=== PATIENT | female | born 1940 | race Caucasian/White ===

== ENCOUNTER 2024-02-14 11:27 | Emergency (ER) | payer OTHER, SELFPAY ==
[2024-02-14 11:36] VITALS: BP 185/73
[2024-02-14 12:41] LABS: ALT (SGPT) 18 U/L (0-35); AST (SGOT) 31 U/L (14-36); Albumin 4.6 g/dl (3.5-5.0); Alkaline Phosphatase 87 U/L (38-126); Blood Urea Nitrogen 26 mg/dl (7-17); Carbon Dioxide 25 mmol/L (22-30); Chloride 104 mmol/L (98-107); Glucose 132 mg/dl (70-99); Potassium 4.6 mmol/L (3.5-5.1); Sodium 138 mmol/L (135-145); Total Bilirubin 0.7 mg/dl (0.2-1.3); Total Protein 7.4 g/dl (6.3-8.2); eGFR > 60.00
[2024-02-14 12:53] LABS: Troponin I < 0.012 ng/ml
--- NOTE | 2024-02-14 16:56 | ED.GENMED ---
History of Present Illness
General
Chief Complaint: Dizziness
Source: patient
Exam Limitations: none
Time Seen by Provider: 02/14/24 16:26
Nursing documentation reviewed up to this point in time: agreed with
Travel History
Have you had any contact with someone who has COVID-19?: No
Do you have any symptoms of coronavirus? Fever > 100 degrees, chills, cough, shortness of breath, sore throat, loss of taste or smell, muscle aches, or headache?: No
History of Present Illness
History of Present Illness:
Patient is an 83-year-old female who presents to the ER for evaluation. Patient has a history of A-fib hypertension hyperlipidemia TARUN ses-[id number] diabetes and this morning had an episode of dizziness which she describes as
lightheadedness. This was prior to eating her breakfast. She denies any vertigo/room spinning sensation. She feels better now. She has no complaints presently.
She denies any associated chest pain shortness of breath any recent fever chills. She denies any urinary frequency urgency or dysuria
Past History
Past History
ED Past Medical History: Arrthythmia, GERD, Hypercholesterolemia and NIDDM
Social History
Tobacco: Non-smoker
Living: with family
Employment: Retired
Family History
Family History: Other (Noncontributory)
Review of Systems
Review of Systems
Allergies reviewed?: Yes
Other source history: family
Constitutional: Reports no symptoms; Denies fever, fatigue or chills
EENT: Reports no symptoms
Respiratory: Reports no symptoms
Cardiac: Reports no symptoms
ABD/GI: Reports no symptoms
Musculoskeletal: Reports no symptoms
Skin: Reports no symptoms
Neurological: Reports dizzy
Hematologic/Lymphatic: Reports no symptoms
Psychiatric: Reports no symptoms
Phy Exam
General Physical Exam
General Presentation: no apparent distress
General age: appears stated age
General Skin: warm and dry
General Habitus: normal
General Mental: alert
General Hydration: dry mucous membranes
Cardiovascular Exam
Cardiovascular Exam: regular rate/rhythm, no murmur and normal peripheral pulses
Pulmonary Exam
Pulmonary Exam: lungs clear and no respiratory distress
Neurological Exam
Neurological Exam: alert, oriented x3, no motor deficits, no sensory deficits and other (Ambulatory steady gait)
Musculoskeletal Exam
Musculoskeletal Exam: full ROM
Skin Exam
Skin Exam: normal color and warm/dry
Course
Orders/Labs/Results
Orders:
Orders
02/14/24 11:37
ECG [Electrocardiogram (*1)] Urgent
Reason for Study: Vertigo / Dizzy
02/14/24 11:38
EKG- Treatment ONCE
02/14/24 11:51
Comprehensive Metabolic Panel Urgent
Troponin I Urgent
02/14/24 17:32
UA Reflex to Culture [Urinalysis Reflex To Culture] Urgent
Date Specimen was Collected: 02/14/24
Time Specimen was Collected: 17:30
02/14/24 18:26
Complete Blood Count/With Diff Urgent
Abnormal Lab Results
02/14/24 02/14/24
11:51 17:32
BUN 26 H mg/dl
(7-17)
Glucose 132 H mg/dl
(70-99)
Urine Ketones 2+ A
(Negative)
Urine Glucose 3+ A
(Negative)
02/14/24 11:51
Vital Signs
Initial and Last Documented VS:
Initial Vital Signs
Temp Pulse Resp BP Pulse Ox
98.3 F 52 16 185/73 95
02/14/24 11:36 02/14/24 11:36 02/14/24 11:36 02/14/24 11:36 02/14/24 11:36
Last Documented Vital Signs
Temp Pulse Resp BP Pulse Ox
98.3 F 52 16 185/73 95
02/14/24 11:36 02/14/24 11:36 02/14/24 11:36 02/14/24 11:36 02/14/24 11:36
MDM/Problems Addressed
MDM/Problems Addressed:
Patient is an 83-year-old female who presents to the ER for evaluation. Patient was watering her plants this morning and felt dizzy and was like she was get a pass out. This was prior to eating breakfast. She ate breakfast and came to the ER for
evaluation. Patient has been here since 11:30 in the morning and feeling better. She had no associated chest pain shortness of breath. She presents awake alert no acute distress with no neurological deficits ambulatory to steady gait. Patient
denies any fever chills she is afebrile with a stable hemoglobin. BUN mildly elevated however patient drank several drinks of water here. No chest pain normal cardiac troponin
She has no complaints of dizziness now. Heart rate in the 50s. Will have patient follow-up with her [facility] however stable for discharge home. Case reviewed ED physician likely dehydration.
*Pulse Oximetry
Patient hypoxic: no
*EKG
Interpreted by ED Provider?: Yes
Heart Rate: 50
Rate: bradycardiac
Rhythm: sinus
Ischemia: non-specific ST changes
*Critical Care Note
Total Time (30-74mins, 75-104mins- exclusive of procedures): Not Applicable
ED Attending Note
-
Portions of this chart may have been created with voice recognition software.� Occasional wrong word or��sound alike� substitutions may have occurred due to the inherent limitations of voice recognition software.
Discharge Plan
Departure
Patient Disposition: Home (Routine Discharge)
Date of Disposition: 02/14/24
Time of Disposition: 18:52
Patient with high blood pressure during this ER visit?: Yes
Covid-19: Not Applicable
Discharge Problem:
Dizziness, Acute dehydration
Instructions: Dehydration, Adult ED, Dizziness, BLOOD PRESSURE
Prescriptions:
No Action
atorvastatin 20 MG tablet
20 mg PO DAILY
escitalopram oxalate 5 MG tablet
5 mg PO DAILY
chlorpheniramine maleate 4 MG tablet
4 mg PO DAILY
acetaminophen 325 MG tablet
650 mg PO Q4HPRN PRN (Reason: fever/pain) Qty: 0 0RF
amiodarone [Pacerone] 200 MG tablet
200 mg PO BID Qty: 60 5RF
Rx Instructions:
For one month, the once daily
apixaban [Eliquis] 5 MG tablet
5 mg PO BID Qty: 60 5RF
lisinopril [Zestril] 5 MG tablet
5 mg PO DAILY Qty: 30 1RF
metformin 500 MG tablet
1,000 mg PO BID@0800,1700 Qty: 0 0RF
lansoprazole 30 MG capsule,delayed release(DR/EC)
30 mg PO BID Qty: 0 0RF
Rx Instructions:
take am dose 30 minutes before eating.
Referrals:
Shailesh Carlton MD [Family Provider] -
Activity Restrictions/Additional Instructions:
As discussed increase water intake. Call your [facility] tomorrow for an appointment next several days for reevaluation. In addition follow-up with your family doctor. Return if any worsening of symptoms.
Discharge Date and Time
Print Language: SYRIAN
[2024-02-14 17:55] LABS: Urine Albumin Negative (Neg - Trace); Urine Bilirubin Negative (Negative); Urine Character Clear (Clear); Urine Color Yellow; Urine Glucose 3+ (Negative); Urine Ketone 2+ (Negative); Urine Leukocyte Negative (Negative); Urine Nitrite Negative (Negative); Urine Occult Blood Negative (Negative); Urine Specific Gravity 1.015 (<1.030); Urine Urobilinogen Negative (Neg - 1+)
[2024-02-14 18:31] LABS: % Basophils 0.7 % (0-2); % Eosinophils 2.1 % (0-6); % Immature Granulocytes 0.3 % (0-0.5); % Lymphocytes 33.6 % (20.5-51.1); % Monocytes 6.1 % (1.7-9.3); % Neutrophils 57.2 % (42.2-75.2); Absolute Basophils 0.1 10^3/uL (0-0.2); Absolute Eosinophils 0.2 10^3/uL (0-0.7); Absolute Lymphocytes 2.4 10^3/uL (1.2-3.4); Absolute Monocytes 0.4 10^3/uL (0.1-0.6); Absolute Neutrophils 4.1 10^3/uL (1.4-6.5); Hematocrit 45.1 % (37.0-47.0); Hemoglobin 14.9 g/dL (12.0-16.0); Mean Corpuscular Hgb 28.9 pg (27.0-31.0); Mean Corpuscular Volume 87.6 fL (81.0-99.0); Mean Platelet Volume 10.2 fL (7.4-10.4); Nucleated Red Blood Cells % 0 %; Platelet Count 272 10^3/uL (130-400); Red Blood Cell Count 5.15 10^6/uL (4.20-5.40); Red Cell Dist. Width 13.4 % (11.5-14.5); White Blood Cell Count 7.2 10^3/uL (4.8-10.8)
[2024-02-14 18:44] VITALS: BP 198/56
== END 2024-02-14 19:03 | disposition home or self-care (01) ==
LOC: EMR 11:27
PROVIDERS: Emergency Medicine; Nurse Practitioner; EMERGENCY PHYSICIAN Student in an Organized Health Care Education/Training Program; FAMILY PHYSICIAN Family Medicine
DX: R42 Dizziness and giddiness (principal); E86.0 Dehydration; I10 Essential (primary) hypertension; I48.91 Unspecified atrial fibrillation; E78.00 Pure hypercholesterolemia, unspecified; E11.9 Type 2 diabetes mellitus without complications
CPT/HCPCS: 99284; 80053; 81003; 84484; 85025; 93005

== ENCOUNTER → 2024-04-11 14:10 | Outpatient (REF) | payer OTHER, SELFPAY | LOC: RAD 14:10 | PROVIDERS: ATTENDING PHYSICIAN Internal Medicine Cardiovascular Disease; FAMILY PHYSICIAN Family Medicine | DX: I48.0 Paroxysmal atrial fibrillation (principal); Z79.899 Other long term (current) drug therapy | CPT/HCPCS: 71046 ==

== ENCOUNTER → 2024-04-23 12:40 | Outpatient (REF) | payer OTHER, SELFPAY | LOC: HWRAD 12:40 | PROVIDERS: ATTENDING PHYSICIAN Physician Assistant | DX: R10.13 Epigastric pain (principal) | CPT/HCPCS: 74177; Q9967 ==

== ENCOUNTER → 2024-05-25 13:45 | Outpatient (REF) | payer OTHER, SELFPAY | LOC: HWRAD 13:45 | PROVIDERS: ATTENDING PHYSICIAN Physician Assistant | DX: N94.89 Other specified conditions associated with female genital organs and menstrual cycle (principal) | CPT/HCPCS: 76830; 76856 ==

== ENCOUNTER → 2024-07-11 11:05 | Outpatient (REF) | payer OTHER, SELFPAY | LOC: RCS 11:05 | PROVIDERS: ATTENDING PHYSICIAN Physician Assistant; FAMILY PHYSICIAN Nurse Practitioner Family | DX: I48.0 Paroxysmal atrial fibrillation (principal); I10 Essential (primary) hypertension | CPT/HCPCS: 93306 ==

== ENCOUNTER → 2025-03-26 07:20 | Outpatient (REF) | payer OTHER, SELFPAY | LOC: RAD 07:20 | PROVIDERS: ATTENDING PHYSICIAN Internal Medicine Cardiovascular Disease | DX: I45.2 Bifascicular block (principal) | CPT/HCPCS: 71046 ==